=== PATIENT | female | born 1955 | race Caucasian/White ===

== ENCOUNTER 2019-05-09 10:41 | Outpatient (CLI) | payer OTHER, SELFPAY ==
--- NOTE | 2019-05-09 10:47 | US_ITS ---
WS: [id number] ULTRASOUND RIGHT BREAST HISTORY: ABNORMAL Mammogram; mixed ECHOTEXTURE/HYP [facility]OC[facility] COMPARISON: 11/03/2018 TECHNIQUE: 2-D and Doppler. 11:00: Mixed echogenicity mass 2 cm from the nipple measures 7 x 5 x 7 mm. On some of the images this mass looks concerning although the size is not increased. Margins are slightly lobulated in the mass is predominantly hypoechoic. 11:00: 1 cm from the nipple, complex lobulated cyst measuring 3 x 2 x 2 mm. 10:00: 1 cm from the nipple, complex cyst. 9:00: 3 cm from nipple mildly prominent duct. Ultrasound-guided biopsy recommended of the hypoechoic lobulated mass at 11:00, 2 cm from the nipple. Mass has not increased in size but there are some suspicious features for neoplasm. US/US breast RT limited* [id number] IMPRESSION: BI-RADS: 4A-Suspicious: Low FOLLOW-UP: Biopsy Recommended
== END 2019-05-09 10:42 | disposition home or self-care (01) ==
LOC: RADSHAW 10:45
PROVIDERS: Family Provider Internal Medicine; PCP Internal Medicine; Visit Provider Internal Medicine
DX: R92.8 Other abnormal and inconclusive findings on diagnostic imaging of breast (principal); N63.11 Unspecified lump in the right breast, upper outer quadrant
CPT/HCPCS: 76642

== ENCOUNTER 2019-05-24 11:51 | Outpatient (CLI) | payer OTHER, SELFPAY ==
--- NOTE | 2019-05-24 11:57 | US_ITS ---
WS: [id number] ULTRASOUND-GUIDED RIGHT BREAST BIOPSY CLINICAL INFORMATION: RT BREAST ABNORMAL MAMMOGRAM COMPARISON: None. FINDINGS: The procedure including risks, benefits, and complications were discussed with the patient who agreed to proceed. Using sterile technique patient was prepped and draped in the usual sterile fashion. Aft er 1% lidocaine utilizing real-time ultrasound guidance 5 14-gauge cores were obtained of the right b reast lesion at the 11 o'clock position. Subsequently a titanium clip was placed in the biopsy cavity . No immediate complications. Pathology demonstrates fibrocystic changes with focal sclerosing adenosis. No atypia or malignancy id entified. US/[place] [id number] IMPRESSION: 1. Uncomplicated ultrasound-guided right breast biopsy. 2. The pathology demonstrates fibrocystic changes with focal sclerosing adenos is. No atypia or malignancy identified. BI-RADS: 2-Benign FOLLOW UP: 6 Month Follow-up
[2019-05-24 12:22] LABS: INR 0.97 (0.8-1.2)
== END 2019-05-24 11:52 | disposition home or self-care (01) ==
LOC: RAD 11:52
PROVIDERS: Family Provider Internal Medicine; PCP Internal Medicine; Visit Provider Internal Medicine
DX: R92.8 Other abnormal and inconclusive findings on diagnostic imaging of breast (principal); N63.11 Unspecified lump in the right breast, upper outer quadrant
CPT/HCPCS: 19083; 36415; 85610; 88305

== ENCOUNTER 2020-01-21 13:58 | Outpatient (CLI) | payer OTHER, SELFPAY ==
--- NOTE | 2020-01-21 14:04 | MM_ITS ---
WS: [id number] BILATERAL DIGITAL SCREENING MAMMOGRAPHY WITH CAD CLINICAL INFORMATION: SCREENING HISTORY: Screening mammogram. No current complaints. COMPARISON: October 02, 2018 TECHNIQUE: Bilateral CC and MLO views. FINDINGS: Scattered fibroglandular densities bilaterally. No suspicious focal mass, asymmetry, calcifications, or architectural distortion. No evidence of malignancy. Lucent centered and punctate calcifications r ight breast. A few stable ovoid densities and intramammary left nodes. Biopsy marker right breast wit h stable adjacent ovoid density. MM/[place] [id number] IMPRESSION: BI-RADS: 2-Benign FOLLOW UP: 1 Year Follow-up Recommend return to annual screening mammography.
--- NOTE | 2020-01-21 14:36 | XR_ITS ---
WS: [id number] DEXA (DUAL ENERGY X-RAY ABSORPTIOMETRY) Bone mineral density was performed using a GLOG machine. HISTORY: ASYMPTOMATIC POSTMENOPAUSAL STATUS COMPARISON: None available. Lumbar spine BMD (L1-L4): 1.185 g/cm2 T score: 0.0 Z score: 1.3 Total hip BMD: Left: 0.889 g/cm2. T score: -0.9 Z score: 0.1 Right: 0.908 g/cm2. T score: -0.8 Z score: 0.2 10 year probability of a major osteoporotic fracture is 10%. XR/XR DEXA axial skeleton* [id number] IMPRESSION: NORMAL BONE MINERAL DENSITY based upon the WHO classification for females.
== END 2020-01-21 13:59 | disposition home or self-care (01) ==
LOC: RADSHAW 14:00
PROVIDERS: PCP Internal Medicine; Visit Provider Internal Medicine
DX: Z12.31 Encounter for screening mammogram for malignant neoplasm of breast (principal); Z78.0 Asymptomatic menopausal state
CPT/HCPCS: 77067; 77080

== ENCOUNTER 2021-03-14 08:42 | Outpatient (CLI) | payer OTHER, SELFPAY ==
[2021-03-14 09:20] VITALS: BP 137/79; PULSE 87; RESP 17; TEMP 36.9; O2SAT 94
[2021-03-14 09:27] VITALS: BMI 34.0
[2021-03-14 10:46] VITALS: BP 129/82; PULSE 97; RESP 16; TEMP 36.4; O2SAT 97
== END 2021-03-14 08:43 | disposition home or self-care (01) ==
LOC: OPS 08:44
PROVIDERS: Visit Provider Pediatrics
DX: U07.1 COVID-19 (principal)
CPT/HCPCS: 96365

== ENCOUNTER → 2021-05-13 13:45 | Outpatient (BNVA) | payer OTHER, SELFPAY | PROVIDERS: PCP Internal Medicine; Visit Provider Nurse Practitioner Family | DX: R31.9 Hematuria, unspecified (principal) | CPT/HCPCS: 81003; 87086; 88112 ==

== ENCOUNTER 2021-06-04 12:38 | Outpatient (CLI) | payer OTHER, SELFPAY ==
--- NOTE | 2021-06-04 13:46 | CT_ITS ---
WS: [id number] CT ABDOMEN AND PELVIS WITH AND WITHOUT CONTRAST HISTORY: GROSS HEMATURIA TECHNIQUE: Unenhanced 5 mm axial imaging first performed through the abdomen. Post contrast imaging t hrough the abdomen and pelvis. Oral contrast has not been provided. Sagittal and coronal reformats a re submitted. All CT scans at [facility] use at least one of these dose optimization techniqu es: automated exposure control; mA and/or kV adjustment per patient size (includes targeted exams whe re dose is matched to clinical indication); or iterative reconstruction. CONTRAST: Omnipaque 300; 95 mL IV. DLP: 2351.47 mGy.cm COMPARISON: None available. Lung bases are clear. Heart size is normal. No pericardial or pleural effusion. There is a small amou nt of fluid in the distal esophagus which is probably from reflux disease. Normal liver and spleen. Gallbladder has been removed. Portal vein is normally enhancing. Mild atrophy of the pancreas. Normal adrenal glands. Atherosclerot ic plaque within the aorta but no aneurysm. RIGHT kidney: Mild perinephric stranding. No stone or hydronephrosis. No ureteral calcification. No e nhancing soft tissue mass. 3 mm hypodensity in the mid kidney is too small to characterize. LEFT kidney: Mild perinephric stranding. 2 mm nonobstructing calcification in the mid pelvis. 15 x 17 well-circumscribed mass from the medial mid LEFT kidney. Hounsfield units are low and there is no en hancement. No hydronephrosis or ureteral obstruction. No ascites or adenopathy within the abdomen or pelvis. No colon obstruction. The appendix is normal. Urinary bladder is not distended. No delayed imaging to distend the bladder with IV contrast. Prior h ysterectomy. No osseous abnormalities. CT/CT abdomen pelvis wo/w [id number] IMPRESSION: 1. No enhancing renal mass is identified or hydronephrosis. 2. Mild bilateral perinephric stranding. Simple cyst medial mid LEFT kidney. 3. Prior cholecystectomy and hysterectomy. 4. Normal appendix. 5. Nondistended urinary bladder.
[2021-06-04 14:45] LABS: Blood Urea Nitrogen 12 mg/dL (8-23); Glomerular Filtration Rate 71.5 mL/min (90-130)
== END 2021-06-04 12:39 | disposition home or self-care (01) ==
LOC: RAD 12:44
PROVIDERS: PCP Internal Medicine; Visit Provider Urology
DX: R31.0 Gross hematuria (principal); N28.1 Cyst of kidney, acquired; Z90.49 Acquired absence of other specified parts of digestive tract; Z90.710 Acquired absence of both cervix and uterus
CPT/HCPCS: 74178; 81003; 82565; 84520; Q9967

== ENCOUNTER → 2021-07-03 10:52 | Outpatient (BNVA) | payer OTHER, SELFPAY | PROVIDERS: PCP Internal Medicine; Visit Provider Urology | DX: R31.0 Gross hematuria (principal) | CPT/HCPCS: 81003 ==

== ENCOUNTER 2021-09-16 15:20 | Outpatient (CLI) | payer OTHER, SELFPAY ==
--- NOTE | 2021-09-16 15:27 | MM_ITS ---
WS: [id number] BILATERAL 3D TOMOSYNTHESIS DIGITAL SCREENING MAMMOGRAPHY WITH CAD CLINICAL INFORMATION: SCREEN HISTORY: Screening mammogram. No current complaints. COMPARISON: January 21, 2020 TECHNIQUE: Bilateral CC and MLO views. FINDINGS: Scattered fibroglandular densities bilaterally. Biopsy marker RIGHT breast. Stable adjacent ovoid den sity. Increasing nodular density anterior RIGHT breast measuring 10 mm upper outer RIGHT breast. Wade mmend RIGHT breast diagnostic mammography and ultrasound RIGHT breast in further evaluation. LEFT breast is unremarkable and unchanged. MM/[place] [id number] IMPRESSION: BI-RADS: 0-Incomplete: Need additional imaging evaluation FOLLOW UP: Need Additional Imaging RECOMMEND RIGHT BREAST DIAGNOSTIC MAMMOGRAPHY AND ULTRASOUND IN FURTHER EVALUAT ION
== END 2021-09-16 15:21 | disposition home or self-care (01) ==
LOC: RAD 15:23
PROVIDERS: PCP Internal Medicine; Visit Provider Internal Medicine
DX: Z12.31 Encounter for screening mammogram for malignant neoplasm of breast (principal)
CPT/HCPCS: 77063; 77067

== ENCOUNTER → 2021-10-12 16:16 | Outpatient (BNVA) | payer OTHER, SELFPAY | PROVIDERS: PCP Internal Medicine; Visit Provider Nurse Practitioner Family | DX: N30.20 Other chronic cystitis without hematuria (principal); R31.0 Gross hematuria | CPT/HCPCS: 81003 ==

== ENCOUNTER 2021-10-13 08:43 | Outpatient (CLI) | payer OTHER, SELFPAY ==
--- NOTE | 2021-10-13 08:49 | MM_ITS ---
WS: [id number] RIGHT 3D TOMOSYNTHESIS DIGITAL MAMMOGRAPHY WITH CAD CLINICAL INFORMATION: RT ABNORMAL MAMMOGRAM COMPARISON: September 16, 2021 TECHNIQUE: 3 views of the right breast were obtained. FINDINGS: Scattered fibroglandular densities of the right breast. Again seen is the increasing nodular density RIGHT breast measuring 10 mm in the upper outer quadrant. Ultrasound described below. ULTRASOUND BREAST RIGHT TECHNIQUE: Ultrasound right breast focused area of concern. CLINICAL INFORMATION: RT ABNORMAL MAMMOGRAM COMPARISON: None. FINDINGS: Ultrasound RIGHT breast at the 9:00 position 3 cm from the nipple. Complex lobulated hypoechoic lesio n measuring approximately 9.1 x 8.3 x 3.8 mm corresponds to the mammographic findings. Small amount o f through transmission. This lesion appears complex with suspected cystic and soft tissue components. This lesion is indeterminant and recommend further evaluation with ultrasound-guided biopsy. MM/[place] [id number] IMPRESSION: BI-RADS: 4-Suspicious Finding-Biopsy Should Be Considered FOLLOW UP: US Guided Biopsy Recommended
== END 2021-10-13 08:44 | disposition home or self-care (01) ==
PROVIDERS: PCP Internal Medicine; Visit Provider Internal Medicine
DX: R92.8 Other abnormal and inconclusive findings on diagnostic imaging of breast (principal)
CPT/HCPCS: 76642; 77061

== ENCOUNTER 2021-11-03 12:24 | Outpatient (CLI) | payer OTHER, SELFPAY ==
--- NOTE | 2021-11-03 12:37 | US_ITS ---
WS: [id number] ULTRASOUND-GUIDED RIGHT BREAST BIOPSY HISTORY: MAMMOGRAM ABNORMAL, RIGHT COMPARISON: 10/13/2021, 05/24/2019 and 09/16/2021 Procedure, risks and complications are explained to the patient. Medications are reviewed. Consent is obtained. The mass in the RIGHT breast is localized with ultrasound. Mass localizes to 9:00, 3 cm from the nipp le. Skin is cleansed with ChloraPrep and anesthetized with 1% buffered lidocaine. Small dermatome is made. Under sterile conditions mass is biopsied with a 14-gauge Achieve needle. Multiple core biopsie s are performed. Material placed in formalin and sent to pathology for review. No complications encou ntered. Breast tissue marker (Bard ultrasound enhanced ribbon): Single. Patient left the radiology suite with no complications. Patient is instructed to return to [facility] with any concerns. US/[place] [id number] IMPRESSION: 1. Uncomplicated core needle biopsy RIGHT breast mass at 9:00, 3 cm from the n ipple. PATHOLOGY: Benign breast tissue with columnar cell changes. Cyst content and ap ocrine metaplasia. No malignancy. RECOMMENDATION: Diagnostic RIGHT mammogram 6 months.
== END 2021-11-03 12:25 | disposition home or self-care (01) ==
LOC: RAD 12:24
PROVIDERS: PCP Internal Medicine; Visit Provider Internal Medicine
DX: R92.8 Other abnormal and inconclusive findings on diagnostic imaging of breast (principal); N63.15 Unspecified lump in the right breast, overlapping quadrants
CPT/HCPCS: 19083; 88305

== ENCOUNTER → 2021-12-17 10:27 | Outpatient (BNVA) | payer OTHER, SELFPAY | PROVIDERS: PCP Internal Medicine; Visit Provider Urology | DX: N30.20 Other chronic cystitis without hematuria (principal); R31.0 Gross hematuria; I10 Essential (primary) hypertension | CPT/HCPCS: 81003 ==

== ENCOUNTER → 2022-06-21 14:46 | Outpatient (BNVA) | payer MEDICARE, OTHER, SELFPAY | PROVIDERS: PCP Internal Medicine; Visit Provider Urology | DX: N30.20 Other chronic cystitis without hematuria (principal) | CPT/HCPCS: 81003; 99213 ==

== ENCOUNTER → 2022-09-13 08:27 | Outpatient (BNVA) | payer MEDICARE, OTHER, SELFPAY | PROVIDERS: PCP Internal Medicine; Visit Provider Urology | DX: N30.20 Other chronic cystitis without hematuria (principal) | CPT/HCPCS: 81003; 99213 ==

== ENCOUNTER → 2022-09-24 09:53 | Outpatient (BNVA) | payer MEDICARE, OTHER, SELFPAY | PROVIDERS: PCP Internal Medicine; Referring Provider Internal Medicine; Visit Provider Nurse Practitioner Family | DX: L73.8 Other specified follicular disorders (principal); L72.0 Epidermal cyst; L57.8 Other skin changes due to chronic exposure to nonionizing radiation; L81.4 Other melanin hyperpigmentation; D22.5 Melanocytic nevi of trunk; Z71.89 Other specified counseling; L85.3 Xerosis cutis | CPT/HCPCS: 11102; 99203 ==

== ENCOUNTER 2022-11-05 08:11 | Outpatient (CLI) | payer MEDICARE, OTHER, SELFPAY ==
--- NOTE | 2022-11-05 08:22 | MM_ITS ---
WS: [id number] DIAGNOSTIC BILATERAL DIGITAL BREAST TOMOSYNTHESIS MAMMOGRAPHY WITH CAD HISTORY: POST BX F/U COMPARISON: 07/14/2017, 10/13/2021, 09/16/2021 TECHNIQUE: Bilateral craniocaudad, mediolateral oblique, and mediolateral views are submitted with to mosynthesis and SM. Computer aided detection utilized. Breast composition: There are scattered areas of fibroglandular density. Post biopsy clip in the lateral RIGHT breast near 9:00. There are additional bilateral calcifications . The asymmetry in the RIGHT breast has not changed adversely since the prior study. MM/[place] [id number] IMPRESSION: BI-RADS: 2-Benign FOLLOW UP: 1 Year Follow-up
== END 2022-11-05 08:12 | disposition home or self-care (01) ==
PROVIDERS: PCP Internal Medicine; Visit Provider Nurse Practitioner Family
DX: N64.89 Other specified disorders of breast (principal); Z87.898 Personal history of other specified conditions
CPT/HCPCS: 77062; G0279

== ENCOUNTER 2023-12-23 09:23 | Outpatient (CLI) | payer OTHER, MEDICARE, SELFPAY ==
--- NOTE | 2023-12-23 09:24 | MM_ITS ---
WS: [id number] Bilateral screening 3D tomosynthesis digital mammogram, 12/23/2023 9:48 AM Clinical Data: SCREENING Comparison: 11/05/2022, 10/13/2021, 09/16/2021, 01/21/2020 11/03/2018, 10/02/2018, 07/14/2017, 07/06/2016, 014, 12/29/2011, 06/04/2010, 12/26/2008, 10/21/2006. Findings: No spiculated masses or clustered calcifications are seen. There are no secondary signs of carcinoma . The breast parenchymal pattern shows fibroglandular tissue. There is a biopsy clip in the lateral a spect of the right breast. MM/MM scr tomosynthesis [id number] Impression: Negative bilateral mammogram unchanged. Recommend annual screening mammograms. BIRADS: 1 - Negative. FOLLOW UP: 1 Year Follow-up DENSITY: The breasts are almost entirely fatty. The CAD shellfish checker was used
== END 2023-12-23 09:24 | disposition home or self-care (01) ==
LOC: RAD 09:24
PROVIDERS: PCP Internal Medicine; Visit Provider Internal Medicine
DX: Z12.31 Encounter for screening mammogram for malignant neoplasm of breast (principal); R92.333 Mammographic heterogeneous density, bilateral breasts
CPT/HCPCS: 77063; 77067